=== PATIENT | female | born 1950 | race Caucasian/White ===

== ENCOUNTER 2025-03-05 07:18 | Emergency (ER) | payer MEDICARE, OTHER, SELFPAY ==
[2025-03-05 07:37] VITALS: BP 176/98; PULSE 88; RESP 14; TEMP 36.6; O2SAT 98; BMI 29.2
--- NOTE | 2025-03-05 07:46 | PC.NURSE ---
patient noted that she had bleeding coming from inner leg today not actively bleeding
--- NOTE | 2025-03-05 08:02 | ED.WOUNDLAC ---
HPI - Wound/Laceration General Chief Complaint: Wound/Laceration Stated Complaint: bleeding top rt inside leg per pt Time Seen by Provider: 03/05/25 07:58 Source: patient Mode of arrival: Ambulatory History of Present Illness HPI narrative: Patient is a 74-year-old female without significant medical problems presenting to day with some bleeding in her vaginal area. She reports that she went to the restroom normally this morning but then noticed blood on her leg. She is not on antiplatelet or anticoagulation medication. She denies any kind of injury. Related Data Home Medications ?Medication ?Instructions ?Recorded ?Confirmed No Known Home Medications 05/18/19 05/18/19 Previous Rx's ?Medication ?Instructions ?Recorded azithromycin 250 mg tablet See Rx Instructions PO .COMPLEX #6 05/18/19 tabs benzonatate 100 mg capsule 100 mg PO BID PRN cough #14 caps 05/18/19 (Tesjavier Johnson) Allergies Allergy/AdvReac Type Severity Reaction Status Date / Time No Known Drug Allergies Allergy Verified 03/05/25 07:38 Patient History Social History Smoking Status: Never smoker Smoking Status: Never smoker Exam Initial Vital Signs Initial Vital Signs: Vital Signs Temperature 98 F 03/05/25 07:37 Pulse Rate 88 03/05/25 07:37 Respiratory Rate 14 03/05/25 07:37 Blood Pressure 176/98 H 03/05/25 07:37 Pulse Oximetry 98 03/05/25 07:37 Oxygen Delivery Method Room Air 03/05/25 07:37 GENERAL: Well-appearing, well-nourished and in no acute distress. CARDIOVASCULAR: peripheral pulses in tact, cap refill <2 sec RESPIRATORY: No respiratory distress, speaks in full sentences without difficulty EXTREMITIES: Normal range of motion, no clubbing or edema. Neurovascularly intact NEUROLOGICAL: Cranial nerves II through XII grossly intact. Normal gait and speech. SKIN: Right inner thigh I do not think near labia but not on labia is a very small pinpoint dark oozing blood. There is no abscesses no laceration Course Vital Signs Vital signs: Vital Signs - 8 hr 03/05/25 07:37 Temperature 98 F Pulse Rate 88 Respiratory Rate 14 Blood Pressure 176/98 H Pulse Oximetry 98 Oxygen Delivery Method Room Air MDM - Wound/Laceration MDM Narrative Medical decision making narrative: Patient is 74-year-old female who has small area of bleeding on her leg. It is darkened venous is not arterial it is easily controlled with pressure. Surgicel is placed. At this time he is not need any further intervention. Bleeding is well-controlled at this time. There is no abscess no laceration Discharge Plan Departure Patient Disposition: Home Clinical Impression: Avulsion of skin Instructions: DI for Minor Laceration Activity Restrictions/Additional Instructions: *You have been diagnosed with bleeding areas *What to do: At this time apply pressure for 30-60 minutes at a time. You may even apply ice if needed. Recommend sanitary pad this should stop bleeding pretty easily. *Continue to take medications as directed *Follow up with your primary care provider in 2-3 days or call [phone] *Return to ER if you should have persistent bleeding despite above interventions or any new, worsening or concerning symptoms Prescriptions: No Action No Known Home Medications azithromycin 250 mg tablet See Rx Instructions PO .COMPLEX Qty: 6 0RF Rx Instructions: take 500 mg today (day 1), then 250 mg for 4 days (days 2-5) PO benzonatate [Tessalon Perles] 100 mg capsule 100 mg PO BID PRN (Reason: cough) Qty: 14 0RF Stand Alone Forms: Patient Portal/API
== END 2025-03-05 08:19 | disposition home or self-care (01) ==
PROVIDERS: Emergency Provider Emergency Medicine
DX: S81.811A Laceration without foreign body, right lower leg, initial encounter (principal)
CPT/HCPCS: 99281